=== PATIENT | female | born 1945 | race Caucasian/White ===

== ENCOUNTER → 2016-09-02 | Outpatient (REF) | payer MEDICARE, MEDICAID ==
[~2016-09-02] MED LIST: ACTO15TA OR; ACTO15TA PO; ALBU83IN IN; ALBUTEROL INH; ASPI81TA85 PO; BABY81CH OR; CALC600T7 PO; CALCIUM/VIT D OR; CLAR1TAB2 PO; CLARITIN OR; HYDR-3716 PO; HYDROCODONE OR; IPRASOL4 NEB; KEFL500C7 PO; LASI40TA OR; LASI40TA PO; LEVO75TA2 OR; LEVO75TA4 PO; LIDO5DIS TOP; LIDO5DIS36 TD; LISI-542 PO; LISI5TAB OR; LYRI100C10 PO; MULT1TAB8 PO; NYST100024 TOP; OMEP20CA3 PO; OMEP20TA7 OR; OXYCPOW OR; PREG100CA OR; SLOW MAG OR; SLOWTAB2 PO; THERGRAN OR; TIZA4TAB OR; TYLE325T5 PO; VITAMIN D50000 UNT OR
[2016-09-02 12:02] LABS: MEAN CORPUSCULAR HGB CONC 32.6 g/dl (32.0-36.5); MEAN CORPUSCULAR VOLUME 95.3 fl (80.0-96.0); WHITE BLOOD COUNT 5.8 K/mm3 (4.0-10.0)
[2016-09-02 12:24] LABS: ALBUMIN 3.6 GM/DL (3.2-5.2); ALBUMIN/GLOBULIN RATIO 1.13 (1.00-1.93); BILIRUBIN,TOTAL 0.3 MG/DL (0.2-1.0); CALCIUM LEVEL 9.2 MG/DL (8.8-10.2); CREATININE FOR GFR 1.05 MG/DL (0.55-1.02); FREE T4 1.04 NG/DL (0.76-1.46); GLOMERULAR FILTRATION RATE 55.2 (>39); MAGNESIUM LEVEL 2.3 MG/DL (1.8-2.4); POTASSIUM SERUM 4.4 MEQ/L (3.5-5.1); TOTAL PROTEIN 6.8 GM/DL (6.4-8.2)
== END ==
LOC: M SFHCPLAZ 10:04
PROVIDERS: ATTEND Family Medicine
DX: N18.3 Chronic kidney disease, stage 3 (moderate) (principal); E11.40 Type 2 diabetes mellitus with diabetic neuropathy, unspecified; E03.9 Hypothyroidism, unspecified; E78.5 Hyperlipidemia, unspecified; E83.40 Disorders of magnesium metabolism, unspecified

== ENCOUNTER → 2017-03-07 | Outpatient (REF) | payer MEDICARE, MEDICAID ==
[~2017-03-07] MED LIST changes: +KEFL500C17 PO; -KEFL500C7 PO; -LIDO5DIS36 TD; +LIDO5DIS41 TD; -LYRI100C10 PO; -NYST100024 TOP; +NYST1POW9 TOP; +PREG100CA PO
[2017-03-07 19:55] LABS: MEAN CORPUSCULAR HEMOGLOBIN 31.6 pg (27.0-33.0); MEAN CORPUSCULAR HGB CONC 32.8 g/dl (32.0-36.5); MEAN CORPUSCULAR VOLUME 96.5 fl (80.0-96.0); RED CELL DISTRIBUTION WIDTH 15.4 % (11.5-14.5); WHITE BLOOD COUNT 7.3 10^3/uL (4.0-10.0)
[2017-03-07 20:11] LABS: ALBUMIN 3.7 GM/DL (3.2-5.2); ALBUMIN/GLOBULIN RATIO 1.09 (1.00-1.93); BILIRUBIN,TOTAL 0.3 MG/DL (0.2-1.0); CREATININE FOR GFR 1.08 MG/DL (0.55-1.02); FREE T4 1.06 NG/DL (0.76-1.46); GLOMERULAR FILTRATION RATE 53.4 (>39); TOTAL PROTEIN 7.1 GM/DL (6.4-8.2)
== END ==
LOC: M SFHCADAM 14:28
PROVIDERS: ATTEND Family Medicine
DX: E11.40 Type 2 diabetes mellitus with diabetic neuropathy, unspecified (principal); N18.3 Chronic kidney disease, stage 3 (moderate); E78.5 Hyperlipidemia, unspecified; E03.9 Hypothyroidism, unspecified

== ENCOUNTER → 2017-03-07 | Outpatient (CLI) | payer MEDICARE, MEDICAID ==
--- NOTE | 2017-03-08 03:09 | REP ---
Clinical: Neck pain. Technique: AP, lateral, bilateral oblique, flexion/extension, and open-mouth views of the cervical spine. Findings: Age-related osteopenia and advanced multilevel degenerative disc osteophyte complexes are appreciated. No acute fracture / compression injury or subluxation identified. Oblique views demonstrate facet hypertrophy and foraminal narrowing at multiple levels. Open mouth view demonstrates normal C1-C2 articulation and odontoid process. Impression: Advanced osteopenia and multilevel degenerative disc osteophyte complexes. No acute fracture / compression injury or subluxation. Signed by Lacho Romero MD 03/08/2017 03:00 A
== END ==
LOC: M ADAMS 14:43
PROVIDERS: ATTEND Family Medicine
DX: M54.2 Cervicalgia (principal); M85.88 Other specified disorders of bone density and structure, other site; M25.78 Osteophyte, vertebrae; E11.40 Type 2 diabetes mellitus with diabetic neuropathy, unspecified; I11.9 Hypertensive heart disease without heart failure; N18.3 Chronic kidney disease, stage 3 (moderate); J44.9 Chronic obstructive pulmonary disease, unspecified; E03.9 Hypothyroidism, unspecified; E78.5 Hyperlipidemia, unspecified; G89.29 Other chronic pain

== ENCOUNTER → 2017-03-09 | Outpatient (REF) | payer MEDICARE, MEDICAID | LOC: M LAB REF 17:05 | PROVIDERS: ATTEND Internal Medicine Nephrology | DX: N39.0 Urinary tract infection, site not specified (principal) ==

== ENCOUNTER → 2017-04-26 | Outpatient (REF) | payer MEDICARE ==
[2017-04-26 22:32] LABS: MICROSCOPIC INDICATED? MAN YES (NO)
[2017-04-26 22:46] LABS: MICROSCOPIC EXAM PERFORMED; RBC, URINE 0-1 /hpf (0-3)
[2017-04-26 22:47] LABS: BACTERIA, URINE SMALL AMOUNT; HYALINE CAST, URINE 0-1 /lpf (0-1); SQUAMOUS EPITHELIAL CELL URINE SMALL AMOUNT /hpf (SMALL AMT)
== END ==
LOC: M SFHCADAM 10:29
PROVIDERS: ATTEND Physician Assistant
DX: N30.00 Acute cystitis without hematuria (principal)

== ENCOUNTER → 2017-06-14 | Outpatient (REF) | payer MEDICARE, MEDICAID ==
[2017-06-14 20:22] LABS: HEMATOCRIT 44.2 % (36.0-47.0); HEMOGLOBIN 14.2 g/dl (12.0-16.0); MEAN CORPUSCULAR HEMOGLOBIN 31.3 pg (27.0-33.0); MEAN CORPUSCULAR HGB CONC 32.1 g/dl (32.0-36.5); MEAN CORPUSCULAR VOLUME 97.4 fl (80.0-96.0); PLATELET COUNT, AUTOMATED 184 10^3/uL (150-450); RED BLOOD COUNT 4.54 10^6/uL (4.00-5.40); RED CELL DISTRIBUTION WIDTH 14.9 % (11.5-14.5); WHITE BLOOD COUNT 8.2 10^3/uL (4.0-10.0)
[2017-06-14 20:49] LABS: ESTIMATED AVERAGE GLUCOSE 131 MG/DL (60-110); HEMOGLOBIN A1c 6.2 %
[2017-06-14 21:01] LABS: ALBUMIN 3.6 GM/DL (3.2-5.2); ALBUMIN/GLOBULIN RATIO 1.06 (1.00-1.93); ALKALINE PHOSPHATASE 79 U/L (45-117); ALT/SGPT 20 U/L (12-78); ANION GAP 6 MEQ/L (8-16); AST/SGOT 20 U/L (7-37); BILIRUBIN,TOTAL 0.4 MG/DL (0.2-1.0); BLOOD UREA NITROGEN 20 MG/DL (7-18); CALCIUM LEVEL 9.1 MG/DL (8.8-10.2); CARBON DIOXIDE LEVEL 31 MEQ/L (21-32); CHLORIDE LEVEL 105 MEQ/L (98-107); CHOLESTEROL LEVEL 170 MG/DL (<200); CHOLESTEROL RISK RATIO 4.146 (<5); CREATININE FOR GFR 0.98 MG/DL (0.55-1.02); GLOMERULAR FILTRATION RATE 59.7 (>39); GLUCOSE, FASTING 79 MG/DL (83-110); HDL CHOLESTEROL 41 MG/DL (>40); LDL CHOLESTEROL 75.2 MG/DL (<100); NON-HDL-C 129 MG/DL; POTASSIUM SERUM 4.5 MEQ/L (3.5-5.1); SODIUM LEVEL 142 MEQ/L (136-145); TRIGLYCERIDES LEVEL 269 MG/DL (<150)
== END ==
LOC: M SFHCADAM 16:37
DX: Z00.00 Encounter for general adult medical examination without abnormal findings (principal); N18.3 Chronic kidney disease, stage 3 (moderate); E11.40 Type 2 diabetes mellitus with diabetic neuropathy, unspecified; E03.9 Hypothyroidism, unspecified; N39.0 Urinary tract infection, site not specified; M75.82 Other shoulder lesions, left shoulder; Z23 Encounter for immunization
CPT/HCPCS: 84443

== ENCOUNTER → 2017-08-09 | Outpatient (CLI) | payer MEDICARE, MEDICAID | LOC: M RAD 11:35 | DX: M79.89 Other specified soft tissue disorders (principal); M79.661 Pain in right lower leg | CPT/HCPCS: 73564 ==

== ENCOUNTER 2017-10-04 15:08 | Emergency (ER) | payer MEDICARE, MEDICAID ==
[2017-10-04] MEDS: HYDROmorphone HCL 1 MG/ML SYRINGE (J1170) IM (16:20)
== END 2017-10-04 17:18 | disposition home or self-care (01) ==
LOC: M ED 15:08
DX: E11.40 Type 2 diabetes mellitus with diabetic neuropathy, unspecified (principal); Z96.651 Presence of right artificial knee joint; I10 Essential (primary) hypertension; E78.00 Pure hypercholesterolemia, unspecified; F17.200 Nicotine dependence, unspecified, uncomplicated; J44.9 Chronic obstructive pulmonary disease, unspecified; K21.9 Gastro-esophageal reflux disease without esophagitis; N18.3 Chronic kidney disease, stage 3 (moderate); E03.9 Hypothyroidism, unspecified; Z87.440 Personal history of urinary (tract) infections; Z87.442 Personal history of urinary calculi; Z79.82 Long term (current) use of aspirin; Z79.899 Other long term (current) drug therapy; Z88.6 Allergy status to analgesic agent; Z91.89 Other specified personal risk factors, not elsewhere classified; Z88.8 Allergy status to other drugs, medicaments and biological substances; Z91.041 Radiographic dye allergy status
CPT/HCPCS: J1170

== ENCOUNTER → 2017-12-26 | Outpatient (REF) | payer MEDICARE, MEDICAID ==
[2017-12-26 12:31] LABS: HEMATOCRIT 42.2 % (36.0-47.0); HEMOGLOBIN 13.9 g/dl (12.0-15.5); MEAN CORPUSCULAR HEMOGLOBIN 31.4 pg (27.0-33.0); MEAN CORPUSCULAR HGB CONC 32.9 g/dl (32.0-36.5); MEAN CORPUSCULAR VOLUME 95.5 fl (80.0-96.0); PLATELET COUNT, AUTOMATED 207 10^3/uL (150-450); RED BLOOD COUNT 4.42 10^6/uL (4.00-5.40); RED CELL DISTRIBUTION WIDTH 15.9 % (11.5-14.5); WHITE BLOOD COUNT 7.4 10^3/uL (4.0-10.0)
[2017-12-26 13:31] LABS: ALBUMIN 3.3 GM/DL (3.2-5.2); ALBUMIN/GLOBULIN RATIO 1.03 (1.00-1.93); ALKALINE PHOSPHATASE 104 U/L (45-117); ALT/SGPT 17 U/L (12-78); ANION GAP 9 MEQ/L (8-16); AST/SGOT 16 U/L (7-37); BILIRUBIN,TOTAL 0.3 MG/DL (0.2-1.0); BLOOD UREA NITROGEN 17 MG/DL (7-18); CALCIUM LEVEL 8.3 MG/DL (8.8-10.2); CARBON DIOXIDE LEVEL 28 MEQ/L (21-32); CHLORIDE LEVEL 106 MEQ/L (98-107); CHOLESTEROL LEVEL 120 MG/DL (<200); CHOLESTEROL RISK RATIO 3.333 (<5); CREATININE FOR GFR 1.01 MG/DL (0.55-1.30); FREE T4 1.24 NG/DL (0.76-1.46); GLOMERULAR FILTRATION RATE 57.5 (>39); GLUCOSE, FASTING 98 MG/DL (70-100); HDL CHOLESTEROL 36 MG/DL (>40); LDL CHOLESTEROL 35.2 MG/DL (<100); MAGNESIUM LEVEL 1.9 MG/DL (1.8-2.4); NON-HDL-C 84 MG/DL; POTASSIUM SERUM 4.1 MEQ/L (3.5-5.1); SODIUM LEVEL 143 MEQ/L (136-145); TOTAL PROTEIN 6.5 GM/DL (6.4-8.2); TRIGLYCERIDES LEVEL 244 MG/DL (<150)
[2017-12-26 13:47] LABS: ESTIMATED AVERAGE GLUCOSE 140 MG/DL (60-110); HEMOGLOBIN A1c 6.5 %
== END ==
LOC: M SFHCADAM 09:59
DX: N18.3 Chronic kidney disease, stage 3 (moderate) (principal); D48.5 Neoplasm of uncertain behavior of skin; E03.9 Hypothyroidism, unspecified; E78.5 Hyperlipidemia, unspecified; E83.40 Disorders of magnesium metabolism, unspecified; E11.40 Type 2 diabetes mellitus with diabetic neuropathy, unspecified; E11.22 Type 2 diabetes mellitus with diabetic chronic kidney disease
CPT/HCPCS: 83735

== ENCOUNTER → 2018-03-09 | Outpatient (REF) | payer MEDICARE, MEDICAID | LOC: M SFHCPLAZ 12:41 | DX: D22.62 Melanocytic nevi of left upper limb, including shoulder (principal); L57.0 Actinic keratosis | CPT/HCPCS: 88305 ==

== ENCOUNTER → 2018-05-15 | Outpatient (REF) | payer MEDICARE, MEDICAID ==
[2018-05-15 20:41] LABS: BASO % 0.6 % (0.0-1.0); EOS # 0.1 10^3/uL (0.0-0.50); EOS % 1.7 % (0.0-3.0); HEMATOCRIT 41.6 % (36.0-47.0); HEMOGLOBIN 13.2 g/dl (12.0-15.5); IMMATURE GRANULOCYTE % 0.3 % (0-3.0); LYMPH # 2.3 10^3/uL (1.5-4.5); LYMPH % 35.4 % (24.0-44.0); MEAN CORPUSCULAR HEMOGLOBIN 32.4 pg (27.0-33.0); MEAN CORPUSCULAR HGB CONC 31.7 g/dl (32.0-36.5); MEAN CORPUSCULAR VOLUME 102.2 fl (80.0-96.0); MONO # 0.4 10^3/uL (0.0-0.8); MONO % 6.6 % (0.0-5.0); NEUTROPHILS # 3.6 10^3/uL (1.8-7.7); NEUTROPHILS % 55.4 % (36.0-66.0); PLATELET COUNT, AUTOMATED 188 10^3/uL (150-450); RED BLOOD COUNT 4.07 10^6/uL (4.00-5.40); RED CELL DISTRIBUTION WIDTH 15.3 % (11.5-14.5); WHITE BLOOD COUNT 6.6 10^3/uL (4.0-10.0)
[2018-05-15 20:46] LABS: ALBUMIN 3.1 GM/DL (3.2-5.2); ALBUMIN/GLOBULIN RATIO 1.03 (1.00-1.93); ALKALINE PHOSPHATASE 89 U/L (45-117); ALT/SGPT 19 U/L (12-78); AMYLASE 44 U/L (25-115); ANION GAP 6 MEQ/L (8-16); AST/SGOT 17 U/L (7-37); BILIRUBIN,TOTAL 0.2 MG/DL (0.2-1.0); BLOOD UREA NITROGEN 17 MG/DL (7-18); CALCIUM LEVEL 8.3 MG/DL (8.8-10.2); CARBON DIOXIDE LEVEL 28 MEQ/L (21-32); CHLORIDE LEVEL 108 MEQ/L (98-107); CREATININE FOR GFR 1.11 MG/DL (0.55-1.30); FREE T4 0.93 NG/DL (0.76-1.46); GLOMERULAR FILTRATION RATE 51.6 (>39); GLUCOSE, FASTING 109 MG/DL (70-100); LIPASE 112 U/L (73-393); POTASSIUM SERUM 4.7 MEQ/L (3.5-5.1); SODIUM LEVEL 142 MEQ/L (136-145); THYROID STIMULATING HORMONE 0.241 uIU/ML (0.358-3.740); TOTAL PROTEIN 6.1 GM/DL (6.4-8.2)
[2018-05-15 20:49] LABS: ESTIMATED AVERAGE GLUCOSE 134 MG/DL (60-110); HEMOGLOBIN A1c 6.3 %
[2018-05-15 21:18] LABS: POS COUNT POS FLAG
[2018-05-18 00:29] LABS: H PYLORI SERUM QUANT IGM <9.0 units (0.0-8.9)
== END ==
LOC: M SFHCADAM 11:32
DX: R10.13 Epigastric pain (principal); E11.40 Type 2 diabetes mellitus with diabetic neuropathy, unspecified; E03.9 Hypothyroidism, unspecified; E83.40 Disorders of magnesium metabolism, unspecified
CPT/HCPCS: 82150

== ENCOUNTER → 2018-07-17 | Outpatient (CLI) | payer MEDICARE, MEDICAID ==
[~2018-07-17] MED LIST changes: +IPRA0.00 NEB; -IPRASOL4 NEB; -LASI40TA PO; +LASI40TA9 PO
== END ==
LOC: M ADAMS 15:23
PROVIDERS: ATTEND Family Medicine
DX: M79.671 Pain in right foot (principal); Z53.8 Procedure and treatment not carried out for other reasons

== ENCOUNTER → 2018-07-18 | Outpatient (REF) | payer MEDICARE, MEDICAID ==
--- NOTE | 2018-07-19 04:23 | REP ---
Clinical: Nontraumatic right foot pain. Technique: AP, lateral, bilateral oblique views right foot . Findings: Age related osteopenia and generalized degenerative changes are appreciated. No acute fracture dislocation. No subcutaneous emphysema or radiodense foreign body. Impression: Osteopenia and generalized age-related changes. Electronically Signed by Lacho Romero MD 07/19/2018 04:14 A
== END ==
LOC: M ADAMS 11:49
PROVIDERS: ATTEND Family Medicine
DX: M79.671 Pain in right foot (principal)

== ENCOUNTER → 2018-11-02 | Outpatient (CLI) | payer MEDICARE, MEDICAID ==
[~2018-11-02] MED LIST changes: +GABA-845 PO
[2018-11-02 12:36] LABS: BASO # 0.1 10^3/uL (0.0-0.2); BASO % 0.8 % (0.0-1.0); EOS # 0.1 10^3/uL (0.0-0.50); HEMATOCRIT 40.9 % (36.0-47.0); HEMOGLOBIN 13.2 g/dl (12.0-15.5); LYMPH # 2.5 10^3/uL (1.5-4.5); LYMPH % 38.8 % (24.0-44.0); MEAN CORPUSCULAR HEMOGLOBIN 32.6 pg (27.0-33.0); MEAN CORPUSCULAR HGB CONC 32.3 g/dl (32.0-36.5); MONO # 0.4 10^3/uL (0.0-0.8); MONO % 6.4 % (0.0-5.0); NEUTROPHILS # 3.3 10^3/uL (1.8-7.7); NEUTROPHILS % 51.7 % (36.0-66.0); PLATELET COUNT, AUTOMATED 219 10^3/uL (150-450); RED BLOOD COUNT 4.05 10^6/uL (4.00-5.40); WHITE BLOOD COUNT 6.5 10^3/uL (4.0-10.0)
[2018-11-02 13:03] LABS: ALBUMIN 3.7 GM/DL (3.2-5.2); ALT/SGPT 18 U/L (12-78); AMYLASE 52 U/L (25-115); BILIRUBIN,TOTAL 0.3 MG/DL (0.2-1.0); BLOOD UREA NITROGEN 20 MG/DL (7-18); CALCIUM LEVEL 9.3 MG/DL (8.8-10.2); CARBON DIOXIDE LEVEL 25 MEQ/L (21-32); CHLORIDE LEVEL 112 MEQ/L (98-107); CREATININE FOR GFR 1.23 MG/DL (0.55-1.30); GLOMERULAR FILTRATION RATE 45.7 (>39); GLUCOSE, FASTING 99 MG/DL (70-100); LIPASE 139 U/L (73-393); POTASSIUM SERUM 4.5 MEQ/L (3.5-5.1); SODIUM LEVEL 142 MEQ/L (136-145); TOTAL PROTEIN 6.5 GM/DL (6.4-8.2)
[2018-11-02 13:11] LABS: VITAMIN B12 LEVEL 515 PG/ML (247-911)
[2018-11-02 14:32] LABS: FOLATE > 24.0 NG/ML (>5.4)
== END ==
LOC: M LAB 11:58
PROVIDERS: ATTEND Internal Medicine Gastroenterology
DX: R19.06 Epigastric swelling, mass or lump (principal)

== ENCOUNTER → 2018-11-12 | Outpatient (REF) | payer MEDICARE, MEDICAID | LOC: M LAB REF 16:45 | PROVIDERS: ATTEND Internal Medicine Nephrology | DX: N39.0 Urinary tract infection, site not specified (principal) ==

== ENCOUNTER → 2018-11-20 | Outpatient (CLI) | payer MEDICARE, MEDICAID ==
[~2018-11-20] MED LIST changes: +ACTO30TA15 PO; +CLAR10CA3 PO
[2018-11-20 14:00] VITALS: BP 162/70
--- NOTE | 2018-11-20 14:09 | REP ---
CT ABDOMEN AND PELVIS WITHOUT CONTRAST: CT abdomen and pelvis performed without oral or IV contrast. Sagittal and coronal reconstruction images are performed. Comparison made with a prior study of 12/24/2013. There are mild interstitial fibrotic changes in the visualized lung bases. Liver is grossly unremarkable. The patient has had a prior cholecystectomy. Spleen, adrenals, and pancreas are grossly unremarkable. There are three intrarenal calculi in the right renal collecting system, the largest is in the upper pole 1.2 cm in diameter. There is no hydronephrosis bilaterally. There is moderate left renal atrophy. There is cystic structures in the left kidney. A calculus in the lower pole of the left kidney measures 6 mm. There is atherosclerotic calcification of the abdominal aorta without aneurysm. I see no adenopathy. There is no free air or free fluid. There is no bowel wall thickening. There is diastasis of the rectus muscles. There is sigmoid diverticulosis without evidence of acute diverticulitis. The patient has had a hysterectomy. Metallic clips are seen in the pelvis. There is a small amount of air in the urinary bladder likely from recent catheterization. There are diffuse degenerative changes of the spine with curvature. IMPRESSION: Status post cholecystectomy. No free air or free fluid. Bilateral intrarenal calculi. Moderate left renal atrophy. Left renal cysts. No hydronephrosis. No adenopathy. Sigmoid diverticulosis without acute diverticulitis. Mild air in the bladder is likely due to recent catheterization. Electronically Signed by Jovani Ramirez MD 11/20/2018 08:12 P
== END ==
LOC: M RAD 12:22
PROVIDERS: ATTEND Internal Medicine Gastroenterology
DX: R10.13 Epigastric pain (principal); R63.4 Abnormal weight loss; R19.06 Epigastric swelling, mass or lump

== ENCOUNTER → 2018-11-22 | Outpatient (CLI) | payer MEDICARE, MEDICAID | LOC: M LAB 10:51 | PROVIDERS: ATTEND Internal Medicine Nephrology | DX: N39.0 Urinary tract infection, site not specified (principal) ==

== ENCOUNTER 2018-11-26 12:09 | Day surgery (SDC) | payer MEDICARE, MEDICAID ==
[~2018-11-26] VITALS: Ht 157.5 cm; Wt 71.7 kg
[~2018-11-26 12:09] MED LIST changes: +NS 1,000 ML IV ONE
[2018-11-26] MEDS ORDERED: LIDOCAINE 2% INJ 100 MG/5 ML SDV (FOR ANES.) As Ordered ONE (13:23)
[2018-11-26] MEDS ORDERED: PROPOFOL 500 MG/50 ML VIAL As Ordered ONE (13:23)
--- NOTE | 2018-11-26 13:49 | ROOR ---
Patient Name: Nai Campos Procedure Date: 11/26/2018 1:21 PM Date of : 1945 Age: 73 Room: [facility] Gender: Female Note Status: Finalized Procedure: Upper GI endoscopy Indications: Epigastric abdominal pain, Suspected gastroparesis, Nausea Providers: Sidney GARZA MD Referring MD: Troy Bhardwaj MD Requesting Provider: Medicines: Monitored Anesthesia Care Complications: No immediate complications. Procedure: Pre-Anesthesia Assessment: - The heart rate, respiratory rate, oxygen saturations, blood pressure, adequacy of pulmonary ventilation, and response to care were monitored throughout the procedure. The Endoscope was introduced through the mouth, and advanced to the second part of duodenum. The upper GI endoscopy was accomplished without difficulty. The patient tolerated the procedure well. Findings: The examined esophagus was normal. Diffuse mildly erythematous mucosa without bleeding was found in the gastric antrum. This was biopsied with a cold forceps for histology. Two localized 5 mm erosions were found at the pylorus. There were no stigmata of recent bleeding. Biopsies were taken with a cold forceps for histology. The exam of the stomach was otherwise normal. (large volume) The examined duodenum was normal. Impression: - Normal esophagus. - Erythematous mucosa in the antrum with 2 small shallow erosions. Biopsied. - Stomach is otherwise normal. - Normal examined duodenum. Recommendation: - Use sucralfate tablets 1 gram twice a day for 4 weeks. (script sent to your pharmacy) - Telephone endoscopist for pathology results in 2 weeks. - Gastroparesis diet: - Eat smaller, more frequent meals throughout the day. - Low fat diet. - Liquid/soft foods are tolerated better than solid foods. - Low fiber/well cooked vegetables are tolerated better than high fiber/fibrous foods/raw vegetables. - Avoid medications that inhibit gastric/intestinal motility such as narcotic medications. Sidney Garza MD Sidney GARZA MD 11/26/2018 1:48:51 PM Electronically signed by Sidney GARZA MD Number of Addenda: 0 Note Initiated On: 11/26/2018 1:21 PM Estimated Blood Loss: Estimated blood loss: none.
[2018-11-26 14:15] VITALS: BP 130/80
== END 2018-11-26 14:29 | disposition home or self-care (01) ==
LOC: M OPP 12:09
PROVIDERS: ATTEND Internal Medicine Gastroenterology
DX: K31.89 Other diseases of stomach and duodenum (principal); R10.13 Epigastric pain; R11.0 Nausea; R63.4 Abnormal weight loss; K21.9 Gastro-esophageal reflux disease without esophagitis; F17.210 Nicotine dependence, cigarettes, uncomplicated; Z79.82 Long term (current) use of aspirin; Z79.899 Other long term (current) drug therapy; Z79.891 Long term (current) use of opiate analgesic; Z91.048 Other nonmedicinal substance allergy status; Z91.041 Radiographic dye allergy status; Z88.2 Allergy status to sulfonamides; Z88.8 Allergy status to other drugs, medicaments and biological substances

== ENCOUNTER → 2019-01-03 | Outpatient (REF) | payer MEDICARE, MEDICAID ==
[~2019-01-03] MED LIST changes: -NS 1,000 ML IV ONE; -OMEP20CA3 PO; +OMEP20CA4 PO
== END ==
LOC: M SFHCADAM 16:46
PROVIDERS: ATTEND Family Medicine
DX: N39.0 Urinary tract infection, site not specified (principal); Z53.8 Procedure and treatment not carried out for other reasons

== ENCOUNTER → 2019-01-10 | Outpatient (REF) | payer MEDICARE, MEDICAID | LOC: M SFHCADAM 19:23 | PROVIDERS: ATTEND Family Medicine | DX: N39.0 Urinary tract infection, site not specified (principal) ==

== ENCOUNTER → 2019-03-12 | Outpatient (REF) | payer MEDICARE, MEDICAID ==
[2019-03-12 13:08] LABS: HEMATOCRIT 41.5 % (36.0-47.0); MEAN CORPUSCULAR HEMOGLOBIN 32.3 pg (27.0-33.0); MEAN CORPUSCULAR HGB CONC 31.3 g/dl (32.0-36.5); MEAN CORPUSCULAR VOLUME 103.2 fl (80.0-96.0); PLATELET COUNT, AUTOMATED 226 10^3/uL (150-450); RED BLOOD COUNT 4.02 10^6/uL (4.00-5.40); WHITE BLOOD COUNT 6.7 10^3/uL (4.0-10.0)
[2019-03-12 13:34] LABS: ALBUMIN 3.2 GM/DL (3.2-5.2); ALT/SGPT 16 U/L (12-78); BILIRUBIN,TOTAL 0.4 MG/DL (0.2-1.0); BLOOD UREA NITROGEN 15 MG/DL (7-18); CALCIUM LEVEL 8.6 MG/DL (8.8-10.2); CARBON DIOXIDE LEVEL 25 MEQ/L (21-32); CHLORIDE LEVEL 111 MEQ/L (98-107); CHOLESTEROL LEVEL 119 MG/DL (<200); CHOLESTEROL RISK RATIO 2.288 (<5); CREATININE FOR GFR 0.95 MG/DL (0.55-1.30); GLOMERULAR FILTRATION RATE > 60.0 (>39); GLUCOSE, FASTING 87 MG/DL (70-100); HDL CHOLESTEROL 52 MG/DL (>40); LDL CHOLESTEROL 32 MG/DL (<100); MAGNESIUM LEVEL 1.9 MG/DL (1.8-2.4); NON-HDL-C 67 MG/DL; POTASSIUM SERUM 3.9 MEQ/L (3.5-5.1); SODIUM LEVEL 143 MEQ/L (136-145); TOTAL PROTEIN 6.1 GM/DL (6.4-8.2); TRIGLYCERIDES LEVEL 174 MG/DL (<150)
[2019-03-12 14:27] LABS: HEMOGLOBIN A1c 5.5 %
== END ==
LOC: M SFHCADAM 09:47
PROVIDERS: ATTEND Family Medicine
DX: E11.40 Type 2 diabetes mellitus with diabetic neuropathy, unspecified (principal); N18.3 Chronic kidney disease, stage 3 (moderate); E03.9 Hypothyroidism, unspecified; E78.5 Hyperlipidemia, unspecified; E83.40 Disorders of magnesium metabolism, unspecified
CPT/HCPCS: 20610; 80053; 80061; 83036; 83735; 84439; 84443; 85027; 90471; 90682; J1030

== ENCOUNTER → 2019-03-20 | Outpatient (REF) | payer MEDICARE, MEDICAID ==
[2019-03-20 17:50] LABS: CREATININE, URINE 61.5 MG/DL; MALB URINE SIEMENS 13.7 MG/L; MAU/CREAT RATIO 22.2 MCG/MG (0.0-30.0)
== END ==
LOC: M SFHCADAM 16:04
PROVIDERS: ATTEND Family Medicine
DX: E11.40 Type 2 diabetes mellitus with diabetic neuropathy, unspecified (principal)

== ENCOUNTER 2019-05-26 17:39 | Inpatient (IN) | payer MEDICARE, MEDICAID ==
[~2019-05-26] VITALS: Ht 152.4 cm; Wt 75.9 kg
[~2019-05-26 17:39] MED LIST changes: +OMEP-172 PO; -OMEP20CA4 PO
[2019-05-26] MEDS ORDERED: GABA-843 PO (17:59)
[2019-05-26] MEDS ORDERED: MORPHINE 2 MG/ML 1ML VIAL (J2270) IV ONE (18:45)
[2019-05-26 19:35] LABS: HEMATOCRIT 39.8 % (36.0-47.0); HEMOGLOBIN 12.2 g/dl (12.0-15.5); MEAN CORPUSCULAR HEMOGLOBIN 31.3 pg (27.0-33.0); MEAN CORPUSCULAR HGB CONC 30.7 g/dl (32.0-36.5); MEAN CORPUSCULAR VOLUME 102.1 fl (80.0-96.0); PLATELET COUNT, AUTOMATED 241 10^3/uL (150-450); WHITE BLOOD COUNT 9.5 10^3/uL (4.0-10.0)
[2019-05-26 19:54] LABS: BLOOD UREA NITROGEN 18 MG/DL (7-18); CALCIUM LEVEL 8.9 MG/DL (8.8-10.2); CARBON DIOXIDE LEVEL 27 MEQ/L (21-32); CHLORIDE LEVEL 111 MEQ/L (98-107); CREATININE FOR GFR 0.91 MG/DL (0.55-1.30); GLOMERULAR FILTRATION RATE > 60.0 (>39); GLUCOSE, FASTING 118 MG/DL (70-100); POTASSIUM SERUM 3.8 MEQ/L (3.5-5.1); SODIUM LEVEL 145 MEQ/L (136-145); URIC ACID 3.9 MG/DL (2.6-6.0)
[2019-05-26] MEDS ORDERED: NS 1,000 ML IV SCH (20:50)
--- NOTE | 2019-05-26 20:55 | HPEPDOC ---
[facility] Medical History & Physical Date of Admission May 26, 2019 Date of Service: May 26, 2019 Primary Care Physician: Troy Bhardwaj MD Attending Physician: Troy Bhardwaj MD History and Physical TIME OF SERVICE: 9:20 PM CHIEF COMPLAINT: Right leg pain HISTORY OF PRESENT ILLNESS: This is a 73-year-old female was brought to the hospital by her family members. According to her son yesterday when she tried to stand up, she had immense pain and was unable to walk. Thereafter, he was pushing her around in office chair, wheelchair style. Besides right leg pain, the patient denies having any other acute complaints and reports feeling well. REVIEW OF SYSTEMS: 12 point review of systems negative except as listed in HPI PAST MEDICAL/ SURGICAL HISTORY: Neuropathy ( remote history of diabetes. A1c 5.5 in March) Chronic hypertension. CKD 3 Hypothyroidism. COPD, not dependent on oxygen. GERD Osteoarthritis. Dyslipidemia. Hypothyroidism. Unsteady gait at baseline walks with a walker Status post cystectomy. Status post cholecystectomy Status post right carpal tunnel surgery. Status post omental hernia repair. Status post appendectomy. Status post left foot ORIF SOCIAL HISTORY: She is a smoker. FAMILY HISTORY: Hypertension Coronary disease Cervical cancer ALLERGIES: Please see below. HOME MEDICATIONS: Please see below. PHYSICAL EXAMINATION: VITAL SIGNS: Please see below. GEN: well nourished / well developed/ NAD INTEGUMENT: not flushed/ not jaundice / there is redness and swelling of the right lower leg HEENT: normocephalic / atraumatic / lips acyanotic /mucus membranes moist and pink / sclera anicteric CVS: RRR/NMRG LUNGS: no coughing / lungs are clear to auscultation bilaterally on room air ABDOMEN: there are no masses or lesions / bowel sounds are present / the abdomen is soft & not tender with palpation NEURO: CN 2-12 are grossly intact / speech is not dysarthric PSYCH: alert and oriented to person place and time/ able to understand and follow all commands LABORATORY DATA: See below. IMAGING: X-rays of the leg show a fracture of the right fibula, but the final read is pending MICROBIOLOGY: Please see below. ASSESSMENT: Ms. Campos is a 73 female with history of DM with neuropathy, chronic hypertension, osteoarthritis, dyslipidemia, hypothyroidism, and unsteady gait will be admitted for management of a right fibular fracture. PLAN: 1. Right fibular fracture, likely secondary to osteoporosis Plan: admit to [facility] / the patient and her family declined surgery/ Ortho consult / PT/ OT consult / pain control w home dose of Vicodine + IV Morphine PRN with stool softeners , the day time team may consider a Pain medicine consult bc the patient appears to have high tolerance to pain meds , despite receiving Vicodin and morphine in the ER, she still very alert/she will need out patient work-up to r/o secondary causes of Osteoporosis (ie DEXA (if T score less than -3 will need Endo referral to start Forteo), TSH, Calcium, 25-OH Vitamin D, Urine calcium & BMP to calculate CrCl BMP to calculate CrCl prior to selecting a bisphosphonate or other med liek denosumab) 2. Neuropathy A1c 5.5 in May. Target A1c for this patient with limited life expectancy is 8.5 % Plan: Continue gabapentin / hold pioglitazone / follow-up serum glucose with a.m BMP 3. Chronic hypertension/ CKD 3 Plan: c/w Lasix 4. Hypothyroidism. Plan: c/w levothyroxine 5. GERD Plan:c/w Omeprazole 6. Osteoarthritis. Plan: c/w Vicodin DVT PROPHYLAXIS: Lovenox DISPOSITION: Inpatient rehabilitation versus home after more than [address] ay Vital Signs Vital Signs Date Time Temp Pulse Resp B/P (MAP) Pulse Ox O2 Delivery O2 Flow Rate FiO2 05/26/19 20:40 98.0 65 18 122/66 (84) 97 05/26/19 19:26 Room Air Laboratory Data Labs 24H Laboratory Tests 2 05/26/19 19:20: Nucleated Red Blood Cells % (auto) 0.0, Anion Gap 7L, Glomerular Filtration Rate > 60.0, Uric Acid 3.9, Calcium Level 8.9 CBC/BMP Laboratory Tests 05/26/19 19:20 Home Medications Scheduled Aspirin (Aspir 81) 81 Mg Tab, 81 MG PO QHS Calcium Carbonate/Vitamin D3 (Calcium 600-Vit D3 200 Tablet) 1 Tab Tab, 1 TAB PO DAILY Furosemide (Lasix) 40 Mg Tab, 40 MG PO DAILY Gabapentin (Gabapentin) 300 Mg Capsule, 600 MG PO BID Levothyroxine Sodium (Levothyroxine Sodium) 75 Mcg Tab, 75 MCG PO DAILY Magnesium Chloride (Slow-Mag) 1 Tab Tab, 64 MG PO BID Multivitamin (Multi-Vitamin Daily) 1 Tab Tab, 1 TAB PO DAILY Omeprazole (Omeprazole) 20 Mg Cap, 20 MG PO BID Pioglitazone HCl (Actos) 30 Mg Tablet, 15 MG PO DAILY Scheduled PRN Hydrocodone/Acetaminophen (Hydrocodone-Acetamin 7.5-325) 1 Tab Tab, 2 TAB PO Q4H PRN for PAIN Loratadine (Claritin) 10 Mg Capsule, 10 MG PO DAILY PRN for ALLERGIES Nystatin (Nystatin Powder) 100,000 Unit/Gm Pow, 1 APPLIC TOP DAILY PRN for REDNESS/IRRITATION Allergies Coded Allergies: Contrast Media (Verified Allergy, Severe, SOB,NAUSEA, 11/22/18) NSAIDS (Non-Steroidal Anti-Inflamma (Verified Adverse Reaction, Severe, kidney problems, 05/26/19) indomethacin (Verified Adverse Reaction, Severe, kidney problems, 05/26/19) metformin (Verified Adverse Reaction, Severe, kidney problems, 05/26/19) TAPE (Verified Adverse Reaction, Intermediate, HUGHES, 11/22/18) barium sulfate (Verified Adverse Reaction, Intermediate, vomiting, 05/26/19) A-FIB/CHADSVASC A-FIB History Current/History of A-Fib/PAF?: No Current PO Anticoag Therapy: No ONDINA ECHEVERRIA MD May 26, 2019 20:55
[2019-05-26] MEDS: MAGNESIUM CHLORIDE 64 MG TABCR (SLO MAG) PO SCH (21:00)
[2019-05-26 21:16] LABS: NT-PRO BNP 239 PG/ML (<125)
[2019-05-26] MEDS ORDERED: ANEXSIA, NORCO 7.5MG/325MG TABLET(HYDROCODONE/APAP) PO ONE (22:15)
[2019-05-26] MEDS ORDERED: NYSTATIN 100,000 UNITS/GM TOPICAL PWD 15 GM TOP PRN (23:00)
[2019-05-27 00:39] VITALS: BP 147/74
[2019-05-27] MEDS: ASPIRIN 81 MG ENTERIC TAB PO SCH ×2 (00:41→20:22)
[2019-05-27] MEDS: GABAPENTIN 300 MG CAP PO SCH ×3 (00:41→20:22)
[2019-05-27] MEDS: OMEPRAZOLE 20 MG CAP PO SCH ×3 (00:41→20:23)
[2019-05-27] MEDS: MORPHINE 2 MG/ML 1ML VIAL (J2270) IV PRN ×2 (00:41→20:23)
[2019-05-27] MEDS: ANEXSIA, NORCO 7.5MG/325MG TABLET(HYDROCODONE/APAP) PO PRN ×5 (05:21→23:42)
[2019-05-27] MEDS: LEVOTHYROXINE 75MCG TABLET (0.075MG) PO SCH (05:21)
[2019-05-27 06:00] VITALS: BP 130/65
--- NOTE | 2019-05-27 08:36 | REP ---
RIGHT ANKLE, FOUR VIEWS: Four views of the right ankle performed. There is a somewhat comminuted fracture of the distal fibular shaft not significantly displaced. Adjacent tibia is intact. Ankle mortise is anatomic. There is moderate inferior calcaneal spurring. IMPRESSION: Comminuted fracture distal fibular shaft and not significantly displaced. Electronically Signed by Jovani Ramirez MD 05/27/2019 04:18 P
--- NOTE | 2019-05-27 08:38 | REP ---
RIGHT LOWER LEG, AP AND LATERAL: AP and lateral views of right lower leg performed. Comminuted fracture of the distal third of the fibular shaft is not significantly displaced. I see no other evidence of acute fracture or dislocation. Metallic knee prosthesis is noted. IMPRESSION: Comminuted nondisplaced fracture distal fibular shaft. Electronically Signed by Jovani Ramirez MD 05/27/2019 04:18 P
--- NOTE | 2019-05-27 08:40 | REP ---
RIGHT FOOT, FOUR VIEWS: There is no evidence of an acute fracture, dislocation or intrinsic bone disease. There is moderate inferior calcaneal spurring. IMPRESSION: No fracture or dislocation. Electronically Signed by Jovani Ramirez MD 05/27/2019 04:18 P
[2019-05-27] MEDS: FUROSEMIDE 40 MG TAB PO SCH (09:04)
[2019-05-27] MEDS: CALCIUM/VITAMIN D 500 MG TAB PO SCH (09:04)
[2019-05-27] MEDS: MAGNESIUM CHLORIDE 64 MG TABCR (SLO MAG) PO SCH ×2 (09:04→20:22)
[2019-05-27] MEDS: ENOXAPARIN 40 MG/0.4 ML SYRINGE (J1650) SC SCH (09:05)
[2019-05-27 11:00] LABS: HEMATOCRIT 37.8 % (36.0-47.0); HEMOGLOBIN 11.7 g/dl (12.0-15.5); MEAN CORPUSCULAR HEMOGLOBIN 31.5 pg (27.0-33.0); MEAN CORPUSCULAR VOLUME 101.9 fl (80.0-96.0); PLATELET COUNT, AUTOMATED 233 10^3/uL (150-450); RED BLOOD COUNT 3.71 10^6/uL (4.00-5.40); WHITE BLOOD COUNT 8.5 10^3/uL (4.0-10.0)
[2019-05-27 11:24] LABS: BLOOD UREA NITROGEN 15 MG/DL (7-18); CALCIUM LEVEL 8.8 MG/DL (8.8-10.2); CARBON DIOXIDE LEVEL 27 MEQ/L (21-32); CHLORIDE LEVEL 110 MEQ/L (98-107); CREATININE FOR GFR 0.81 MG/DL (0.55-1.30); GLOMERULAR FILTRATION RATE > 60.0 (>39); GLUCOSE, FASTING 100 MG/DL (70-100); POTASSIUM SERUM 3.6 MEQ/L (3.5-5.1); SODIUM LEVEL 144 MEQ/L (136-145)
[2019-05-27 14:00] VITALS: BP 110/60
--- NOTE | 2019-05-27 16:48 | IPNPDOC ---
Subjective Date Seen The patient was seen on 05/27/19. Subjective Chief Complaint/HPI adequate pain control Constitutional: Denies: Chills, Fever Eyes: Denies: Pain ENT: Denies: Head Aches Skin: Denies: Rash Pulmonary: Denies: Dyspnea, Cough Cardiovascular: Denies: Chest Pain, Palpitations Gastrointestinal: Denies: Nausea, Vomiting Objective Physical Examination General Exam: Positive: Alert Eye Exam: Positive: PERRLA Neck Exam: Negative: JVD Chest Exam: Positive: Clear to auscultation Heart Exam: Positive: Rate Normal Abdomen Exam: Positive: Normal bowel sounds Extremity Exam: Negative: Edema Skin Exam: Positive: Rash Neuro Exam: Positive: Normal Speech Psych Exam: Positive: Mood NL Assessment /Plan Problems (1) Right fibular fracture Status: Acute Problem Text: low-trauma fracture patient refused surgical repair PT/Ortho consulted 05/[address] to ro pathological source and porosis velez, hold HD evin 30 QD (03/2019 A1C 5.5 and aw CHF, bone loss) 05/27/19 xray: ND comminuted R distal fibular shaft fx plan outpx DEXA and start po vs IV BP in 4W (2) Physical deconditioning Status: Chronic Problem Text: lives c son who works so will need ST SNF 05/27 required 2A for standing, unable to tx-obviously NOT SAFE (3) Hypothyroid Status: Chronic Problem Text: 03/2019 0.7/1.0 on HD LT4 75 (4) CHF (congestive heart failure) Status: Chronic Problem Text: 05/27 check TTE-BNP 239 on admission (no previous) and continues on HD fur 40 (as above evin held) (5) Vitamin D deficiency Status: Chronic Problem Text: 06/2010 vitamin D 22, repeat now (6) Nicotine use disorder (7) Constipation, chronic Status: Chronic Response to Treatment: Stable Problem Text: chronic stimulant-dependent 05/27 restarted senna at 2 QHS given immobility, new narcotic rx (HD: senna 2 QOHS) Plan/VTE VTE Prophylaxis Ordered?: Yes VS, I&O, 24H, Fishbone Vital Signs/I&O Vital Signs Date Time Temp Pulse Resp B/P (MAP) Pulse Ox O2 Delivery O2 Flow Rate FiO2 05/27/19 14:17 18 05/27/19 14:00 97.1 58 110/60 (77) 92 Room Air I&O- Last 24 Hours up to 6 AM 05/27/19 06:00 Intake Total 460 ml Output Total 0 ml Balance 460 ml Laboratory Data 24H LABS Laboratory Tests 2 05/26/19 19:20: Nucleated Red Blood Cells % (auto) 0.0, Anion Gap 7L, Glomerular Filtration Rate > 60.0, Uric Acid 3.9, Calcium Level 8.9, GU-Wxh-D-Type Natriuretic Peptide 239H 05/27/19 08:45: Nucleated Red Blood Cells % (auto) 0.0, Anion Gap 7L, Glomerular Filtration Rate > 60.0, Calcium Level 8.8 CBC/BMP Laboratory Tests 05/26/19 19:20 05/27/19 08:45 Ramo Arechiga M.D. May 27, 2019 16:48
[2019-05-27 18:09] LABS: TOTAL PROTEIN 6.2 GM/DL (6.4-8.2)
[2019-05-27] MEDS: SENNA 8.6 MG TAB (SENOKOT) PO SCH ×2 (20:22→20:26)
--- NOTE | 2019-05-27 20:22 | REPVR ---
PROCEDURE INFORMATION: Exam: CT Right Lower Extremity Without Contrast; Lower Leg Exam date and time: 05/27/2019 6:56 PM Age: 73 years old Clinical history: Pain; Lower leg; Right; Additional info: Low trauma/ ? Pathological TECHNIQUE: Imaging protocol: CT of the Right lower extremity without contrast was performed. Exam focused on the lower leg. Radiation optimization: All CT scans at this facility use at least one of these dose optimization techniques: automated exposure control; mA and/or kV adjustment per patient size (includes targeted exams where dose is matched to clinical indication); or iterative reconstruction. COMPARISON: CR Tibia, Fibula lower leg RIGHT 05/26/2019 7:41 PM CR - RIGHT Tibia, Fibula lower leg 10/04/2017 4:15:41 PM CR - Knee, complete RIGHT 08/09/2017 12:12:44 PM FINDINGS: Bones/joints: Postoperative changes are noted from a right total knee arthroplasty, and there is streak artifact from the hardware. The hardware is intact and appropriately positioned. There is an acute, comminuted, mildly displaced fracture of the right distal fibular diaphysis, with a questionable underlying lytic lesion. There is a lytic lesion in the lateral aspect of the right proximal tibial meta-epiphysis measuring approximately 11.4 cm in length, with a break in the anterior and posterior cortex and soft tissue components extending anteriorly and posteriorly through the breaks in the cortex of the lateral aspect of the right proximal tibial meta-epiphysis. The lytic lesion extends inferiorly to involve the intramedullary cavity of at least the right proximal third of the tibial diaphysis. The rest of the intramedullary cavity of the distal 2/3 of the right tibia appears demineralized. Soft tissues: There is mild fatty atrophy of the right medial and lateral head of gastrocnemius and soleus muscles. No soft tissue fluid collection is noted. Vasculature: There are atherosclerotic calcifications. IMPRESSION: 1. Acute, comminuted, mildly displaced fracture of the right distal fibular diaphysis, with a questionable underlying lytic lesion. 2. Lytic lesion in the lateral aspect of the right proximal tibial meta-epiphysis which breaks in the anterior and posterior cortices and soft tissue components extending anteriorly and posteriorly through the breaks in the cortex of the lateral aspect of the right proximal tibial meta-epiphysis and the lesion extends inferiorly to involve the intramedullary cavity of at least the proximal third of the tibial diaphysis. Differential diagnostic considerations include metastatic disease, a primary bone tumor, and particle disease. Tissue correlation is suggested for a pathologic diagnosis. Electronically signed by: Lauro Gilbert On 05/27/2019 20:22:06 PM
[2019-05-27 22:44] VITALS: BP_SYST 138; BP_SYST 162; BP_DIAS 64
[2019-05-28] MEDS: MORPHINE 2 MG/ML 1ML VIAL (J2270) IV PRN ×5 (02:21→21:28)
[2019-05-28] MEDS: ANEXSIA, NORCO 7.5MG/325MG TABLET(HYDROCODONE/APAP) PO PRN ×4 (04:45→20:00)
[2019-05-28] MEDS: LEVOTHYROXINE 75MCG TABLET (0.075MG) PO SCH (05:11)
[2019-05-28 05:24] VITALS: BP 110/58
[2019-05-28] MEDS ORDERED: **NOTE PATIENT COMMENT** MISC XX SCH (08:30)
[2019-05-28] MEDS: GABAPENTIN 300 MG CAP PO SCH ×2 (08:35→21:27)
[2019-05-28] MEDS: CALCIUM/VITAMIN D 500 MG TAB PO SCH (08:35)
[2019-05-28] MEDS: MAGNESIUM CHLORIDE 64 MG TABCR (SLO MAG) PO SCH ×2 (08:35→21:27)
[2019-05-28] MEDS: FUROSEMIDE 40 MG TAB PO SCH (08:36)
[2019-05-28] MEDS: OMEPRAZOLE 20 MG CAP PO SCH ×2 (08:36→21:27)
[2019-05-28] MEDS: ENOXAPARIN 40 MG/0.4 ML SYRINGE (J1650) SC SCH (08:37)
[2019-05-28 09:57] LABS: PTH INTACT 40.8 PG/ML (18.5-88.0); TOTAL 25(OH) VITAMIN D 31.3 NG/ML (30.0-100.0); VITAMIN B12 LEVEL 392 PG/ML (247-911)
--- NOTE | 2019-05-28 10:24 | CR ---
DATE OF CONSULTATION: 05/27/2019 CHIEF COMPLAINT: Right leg pain. HISTORY OF PRESENT ILLNESS: 73-year-old diabetic woman with peripheral neuropathy and likely osteoporosis/osteomalacia, who stood up, had pain in her leg, does not recall any additional specific injury, could not walk and was brought to the ER. She had imaging studies done which reflected a diaphyseal fibula fracture. I reviewed those x-rays. I do not appreciate any cortical erosions or lytic lesion, however I cannot rule out a pathologic entity. She has trouble ambulating and she was admitted for pain control and progressive mobilization as well as evaluation for other pathologic entity. MEDICAL HISTORY: Includes: Peripheral neuropathy. Hypertension. Renal disease. Hypothyroidism. Chronic obstructive pulmonary disease (COPD). Reflux. Arthritis. Dyslipidemia. Hypothyroidism. PAST SURGICAL HISTORY: Includes: Cystectomy. Cholecystectomy. Carpal tunnel release. Knee replacement on the right. Open reduction of left foot. SOCIAL HISTORY: Continues to smoke. FAMILY HISTORY: Includes high blood pressure and coronary artery disease as well as cervical cancer, otherwise noncontributory. ALLERGIES: Reviewed in the record. MEDICATIONS AT HOME: Reviewed in the record. REVIEW OF SYSTEMS: Negative except for right leg pain in 12 areas. CLINICAL EXAM: Alert, cooperative. Mood and affect appropriate. She speaks in complete sentences, not short of breath. No abdominal distention. Right lower extremity grossly no deformity. No effusion at the knee. Pain at the midportion the leg lateral aspect. No edema at the foot or ankle. Nontender at the foot and ankle. IMAGING: Fracture diaphysis right fibula, nondisplaced. IMPRESSION: Right fibula diaphyseal fracture, atraumatic in a 73-year-old female. RECOMMENDATIONS: While this fracture is likely an osteoporotic insufficiency fracture as the source of pathology, other pathologic considerations should be evaluated by the medical team such as multiple myeloma osteomalacia. Extensive labs have been arranged. From a surgical perspective, this would not be a surgical lesion. We would recommend mobilization with physiotherapy for protected weightbearing as tolerated on this extremity. This was explained also to the patient. For further details please refer to the medical record.
--- NOTE | 2019-05-28 11:56 | IPN ---
DATE: 05/28/2019 Nai is seen on 5 [address]. She was admitted with fibular fracture. She had a CT of the right lower extremity done yesterday, which showed a large proximal tibia lytic lesion with breaks in the anterior and posterior cortices, soft tissue components extending anteriorly and posteriorly through the breaks in the cortex, the lateral aspect of the right proximal tibial metaphysis. Lesion extends inferiorly to involve the intramedullary cavity of at least the proximal third of the tibial diaphysis. I also noted a comminuted mildly displaced right distal fibular fracture. She has no fever, chills or night sweats. No unexplained weight loss. PHYSICAL EXAM: Vital Signs: Stable. Lungs: Clear. Heart: Regular rate and rhythm. Abdomen: Soft, nontender. Right leg is tender to palpate distally. LABS: Today are all pending. IMPRESSION: 1. Right fibular fracture. She is declining orthopedic intervention for this. 2. Lytic lesions suspicious for myeloma versus metastatic lesion, unlikely osteoporotic with the extension. She has an SPEP ordered. Immunotyping is pending. I will order free kappa lambda light chains. I have also ordered a bone survey. 3. Diabetes. Blood sugars are well controlled. Not currently on fingersticks or any coverage. 4. Hypothyroidism. dose of levothyroxine. 5. Constipation. She would like some Ex-Lax ordered which she takes every other day at home.
[2019-05-28 12:52] LABS: ALBUMIN % 51.4 % (55.8-66.1); ALPHA-1-GLOBULIN % 6.7 % (2.9-4.9); ALPHA-2-GLOBULINS % 16.4 % (7.1-11.8)
[2019-05-28 12:53] LABS: ALBUMIN 3.19 GM/DL (3.29-5.55); ALPHA-1-GLOBULINS 0.42 GM/DL (0.17-0.41); ALPHA-2-GLOBULINS 1.02 GM/DL (0.42-0.99); BETA-1-GLOBULINS 0.39 GM/DL (0.28-0.60); BETA-1-GLOBULINS % 6.3 % (4.7-7.2); BETA-2-GLOBULINS 0.36 GM/DL (0.19-0.55); BETA-2-GLOBULINS % 5.8 % (3.2-6.5); GAMMA GLOBULIN % 13.4 % (11.1-18.8); GAMMA GLOBULINS 0.83 GM/DL (0.65-1.58)
[2019-05-28 14:00] VITALS: BP 129/62
[2019-05-28] MEDS ORDERED: EX LAX PO PRN (15:00)
[2019-05-28 20:00] VITALS: BP 119/57
[2019-05-28] MEDS: ASPIRIN 81 MG ENTERIC TAB PO SCH (21:27)
[2019-05-29] MEDS: ANEXSIA, NORCO 7.5MG/325MG TABLET(HYDROCODONE/APAP) PO PRN ×5 (00:20→21:10)
[2019-05-29] MEDS: MORPHINE 2 MG/ML 1ML VIAL (J2270) IV PRN ×5 (03:54→22:11)
[2019-05-29] MEDS: LEVOTHYROXINE 75MCG TABLET (0.075MG) PO SCH (05:19)
[2019-05-29 05:47] VITALS: BP 132/56
[2019-05-29 05:53] VITALS: BP 121/63
[2019-05-29] MEDS: GABAPENTIN 300 MG CAP PO SCH ×2 (09:45→21:09)
[2019-05-29] MEDS: FUROSEMIDE 40 MG TAB PO SCH (09:45)
[2019-05-29] MEDS: MAGNESIUM CHLORIDE 64 MG TABCR (SLO MAG) PO SCH ×2 (09:45→21:10)
[2019-05-29] MEDS: OMEPRAZOLE 20 MG CAP PO SCH ×2 (09:45→21:09)
[2019-05-29] MEDS: CALCIUM/VITAMIN D 500 MG TAB PO SCH (09:45)
[2019-05-29] MEDS: ENOXAPARIN 40 MG/0.4 ML SYRINGE (J1650) SC SCH (09:45)
--- NOTE | 2019-05-29 10:42 | IPN ---
DATE: 05/29/2019 Nai is seen on 5 [address]. She declined getting her bone survey done yesterday. So far, her workup for myeloma has been unremarkable. Her SPEP is normal, and there is no spike on her immunofixation. She also has a normal PTH, normal vitamin D level. She is having a lot of back pain, which is chronic. She has chronic pain syndrome and is on chronic opiates as an outpatient. I, frankly, have never seen her in the office when she was not in some element of pain, mostly in her left low back. PHYSICAL EXAM: Afebrile, vital signs stable. General appearance: Alert, conversant, no distress. Lungs: Clear. Heart: Regular rate and rhythm. Abdomen: Soft, nontender. No peripheral edema. Tender to palpate the right leg, distal to the knee that is over the fracture of the fibula. IMPRESSION: 1. Fibular fracture. Activity per orthopedics. 2. Proximal tibial lesion. I had a long discussion with Dr. Stuart Wells from radiology and I appreciate his reviewing the CT scan. We had considered getting a CT-guided biopsy of this lesion, but after careful consideration, he feels that this lesion is not lytic, cystic, or metastatic. He thinks it is postoperative related to fixative used in her knee replacement, does not feel it needs to be biopsied. In the face of unremarkable workup for myeloma and his expert opinion of this, I have cancelled the CT-guided biopsy. 3. Chronic pain syndrome. I have adjusted her pain medicines. 4. Hypothyroidism. Stable on current dose of levothyroxine. 5. Osteoporosis. She has significant osteoporosis. This is primarily related to inactivity-she spends most of her day sitting. She also was on pioglitazone, associated with osteoporosis. We can address this as an outpatient.
[2019-05-29 14:00] VITALS: BP 115/69
[2019-05-29] MEDS: ASPIRIN 81 MG ENTERIC TAB PO SCH (21:09)
[2019-05-29 22:00] VITALS: BP 130/60
[2019-05-30] MEDS: ANEXSIA, NORCO 7.5MG/325MG TABLET(HYDROCODONE/APAP) PO PRN ×3 (01:32→11:36)
[2019-05-30] MEDS: MORPHINE 2 MG/ML 1ML VIAL (J2270) IV PRN ×2 (03:04→08:08)
[2019-05-30] MEDS: LEVOTHYROXINE 75MCG TABLET (0.075MG) PO SCH (05:41)
[2019-05-30 05:47] LABS: FREE KAPPA LIGHT CHAINS SERUM 37.9 mg/L (3.3-19.4); FREE LAMBDA LIGHT CHAINS SERUM 35.1 mg/L (5.7-26.3); KAPPA/LAMBDA RATIO SERUM 1.08 (0.26-1.65); TISSUE TRANSGLUTAMINASE IgA <2 U/mL (0-3)
[2019-05-30 06:00] VITALS: BP 134/65
[2019-05-30 06:26] LABS: HEMATOCRIT 38.6 % (36.0-47.0); HEMOGLOBIN 11.7 g/dl (12.0-15.5); MEAN CORPUSCULAR HGB CONC 30.3 g/dl (32.0-36.5); MEAN CORPUSCULAR VOLUME 102.1 fl (80.0-96.0); PLATELET COUNT, AUTOMATED 218 10^3/uL (150-450); RED BLOOD COUNT 3.78 10^6/uL (4.00-5.40)
[2019-05-30 06:44] LABS: BLOOD UREA NITROGEN 15 MG/DL (7-18); CALCIUM LEVEL 8.6 MG/DL (8.8-10.2); CARBON DIOXIDE LEVEL 28 MEQ/L (21-32); CHLORIDE LEVEL 108 MEQ/L (98-107); CREATININE FOR GFR 0.97 MG/DL (0.55-1.30); GLOMERULAR FILTRATION RATE > 60.0 (>39); GLUCOSE, FASTING 155 MG/DL (70-100); POTASSIUM SERUM 3.4 MEQ/L (3.5-5.1); SODIUM LEVEL 142 MEQ/L (136-145)
[2019-05-30] MEDS: ENOXAPARIN 40 MG/0.4 ML SYRINGE (J1650) SC SCH (08:07)
[2019-05-30] MEDS: OMEPRAZOLE 20 MG CAP PO SCH (08:07)
[2019-05-30] MEDS: GABAPENTIN 300 MG CAP PO SCH (08:07)
[2019-05-30] MEDS: FUROSEMIDE 40 MG TAB PO SCH (08:07)
[2019-05-30] MEDS: CALCIUM/VITAMIN D 500 MG TAB PO SCH (08:07)
[2019-05-30] MEDS: MAGNESIUM CHLORIDE 64 MG TABCR (SLO MAG) PO SCH (08:10)
[2019-05-30] MEDS ORDERED: ASPERCREME WITH LIDOCAINE TOP PRN (09:00)
--- NOTE | 2019-05-30 10:28 | DSES ---
DATE OF ADMISSION: 05/26/2019 DATE OF DISCHARGE: PRINCIPAL DIAGNOSIS: Comminuted nondisplaced fracture distal right fibula. SECONDARY DIAGNOSES: Morbid obesity. Chronic opiate use. Hypothyroidism. Type 2 diabetes. Osteoporosis. HISTORY: Nai Campos turned on her right foot and fell fracturing her right distal fibula. Details in history and physical from admission. HOSPITAL COURSE: Patient was admitted to a medical bed, seen by orthopedics. They recommended protected weight bearing as tolerated. Patient looked to be significantly osteoporotic on imaging. Had a CT of the right leg done that initially suggested lytic lesions. It was reviewed by Dr. Stuart Wells, who did not feel there was evidence of bony destructive lesion. 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 No soft tissue mass was seen. [place] that there were reactive marrow changes associated with long-standing arthroplasty did not a biopsy. She did have a myeloma workup that was normal with normal SPEP and free kappa light chains. Her PTH intact molecule is normal. Her vitamin D level is normal. She did take pioglitazone for her diabetes, which can cause some osteoporosis. She is also essentially immobile, spends most of her day in a chair or a wheelchair, which is probably the proximate cause of this. PHYSICAL EXAM: 134/65, pulse of 80, respiratory 18, 96% oxygen saturation. Lungs: Clear. Heart: Regular rhythm. Abdomen: Soft, nontender. Right fibula tender to palpate. Right knee, nontender to palpate. LABS: Today's sodium 142, potassium 3.4, BUN 15, creatinine 0.9, glucose 155. White count 7, hemoglobin 11.7, platelets 218. DISPOSITION: She is seeing physical therapy now. If she is cleared for discharge, she will go home. She spends most of her day in a wheelchair, which she already has at home. Her home is wheelchair accessible. She will be discharged home. Followup in our office in 1-2 weeks. Activity per orthopedics. Followup appointment at [facility] as well. Consistent carbohydrate, no-added salt diet recommended with 2000 mL per day fluid restriction. Her medicines on discharge will continue to be: - aspirin 81 mg daily - calcium with vitamin D - Lasix 40 mg daily - gabapentin 600 mg three times a day - hydrocodone/acetaminophen 7.5/325 two tablets every 4 hours, which she has been on for over a decade - levothyroxine 75 mcg daily - Claritin 10 mg daily - SlowMag daily - multivitamin daily - nystatin as needed - omeprazole 20 mg twice a day We discontinued her pioglitazone 15 mg daily. She is not on any medication for her diabetes. Her last hemoglobin A1c was excellent at 5.5%, and her fasting blood sugars in the hospital have generally been between 100 and 150, so we can decide on starting another agent for diabetes as an outpatient.
== END 2019-05-30 14:55 | disposition home health service (06) | DRG 543 ==
LOC: EDBD 17:39 → EDSEX 17:39 → M ED 17:39 → M ED INP 20:50 → ENRESERV 23:35 → M MS5PR 05-27 00:22 → ENRESERV 05-27 00:35
PROVIDERS: ADMIT Internal Medicine; ATTEND Family Medicine
DX: M80.061A Age-related osteoporosis with current pathological fracture, right lower leg, initial encounter for fracture (principal); I13.0 Hypertensive heart and chronic kidney disease with heart failure and stage 1 through stage 4 chronic kidney disease, or unspecified chronic kidney disease; N18.3 Chronic kidney disease, stage 3 (moderate); E03.9 Hypothyroidism, unspecified; E11.40 Type 2 diabetes mellitus with diabetic neuropathy, unspecified; F11.90 Opioid use, unspecified, uncomplicated; Z79.82 Long term (current) use of aspirin; Z79.899 Other long term (current) drug therapy; J44.9 Chronic obstructive pulmonary disease, unspecified; K21.9 Gastro-esophageal reflux disease without esophagitis; E78.5 Hyperlipidemia, unspecified; R26.89 Other abnormalities of gait and mobility; M19.90 Unspecified osteoarthritis, unspecified site; Z91.041 Radiographic dye allergy status; Z88.8 Allergy status to other drugs, medicaments and biological substances; I50.9 Heart failure, unspecified; F17.200 Nicotine dependence, unspecified, uncomplicated; K59.00 Constipation, unspecified; Z96.651 Presence of right artificial knee joint; G89.29 Other chronic pain; E66.01 Morbid (severe) obesity due to excess calories

== ENCOUNTER 2019-07-24 15:43 | Outpatient (CLI) | payer MEDICARE, MEDICAID ==
[~2019-07-24] VITALS: Ht 152.4 cm; Wt 65.8 kg
[2019-07-24 15:40] VITALS: BP 117/69
[~2019-07-24 15:43] MED LIST changes: +GABA-843 PO; -OMEP-172 PO; +OMEP1CAP73 PO
[2019-07-24] MEDS ORDERED: ZOLEDRONIC ACID 5 MG in IV 1 EA IV ONE (15:45)
[2019-07-24 16:50] VITALS: BP 125/65
== END 2019-07-24 16:50 | disposition home or self-care (01) ==
LOC: M INFU 15:43
PROVIDERS: ATTEND Family Medicine
DX: M80.80XG Other osteoporosis with current pathological fracture, unspecified site, subsequent encounter for fracture with delayed healing (principal); Z88.1 Allergy status to other antibiotic agents; Z88.2 Allergy status to sulfonamides; Z91.041 Radiographic dye allergy status
CPT/HCPCS: 96365; J3489

== ENCOUNTER 2019-07-28 14:50 | Emergency (ER) | payer MEDICARE, MEDICAID ==
[~2019-07-28] VITALS: Ht 160 cm; Wt 63.6 kg
[2019-07-28 14:51] VITALS: BP 194/86
== END 2019-07-28 16:53 | disposition home or self-care (01) ==
LOC: M ED 14:50
DX: S46.301A Unspecified injury of muscle, fascia and tendon of triceps, right arm, initial encounter (principal); X50.1XXA Overexertion from prolonged static or awkward postures, initial encounter; Y92.092 Bedroom in other non-institutional residence as the place of occurrence of the external cause; I10 Essential (primary) hypertension; F17.210 Nicotine dependence, cigarettes, uncomplicated; Z91.041 Radiographic dye allergy status; Z88.8 Allergy status to other drugs, medicaments and biological substances; Z91.048 Other nonmedicinal substance allergy status; Z79.899 Other long term (current) drug therapy; Z79.82 Long term (current) use of aspirin

== ENCOUNTER → 2019-09-25 | Outpatient (CLI) | payer MEDICARE, MEDICAID ==
--- NOTE | 2019-09-26 04:10 | REP ---
Clinical: Right shoulder pain. Technique: Three views of the right shoulder. Findings: Generalized osteopenia noted. Spurring and cortical irregularity with periarticular calcification at the acromioclavicular joint is appreciated. There is subtle blunting and fraying along the calcified glenoid rim primarily involving the inferior margin. Subacromial space is within normal limits. No acute fracture or dislocation. There is a large mass involving the apical right upper lobe which represents a relatively new finding as compared to most recent chest x-ray dated 12/11/2015. Impression: 1. Large right apical lung mass requires immediate attention including contrast enhanced chest CT for further investigation. 2. Osteopenia and age-related arthritic degenerative changes. Electronically Signed by Lacho Romero MD 09/26/2019 04:01 A
== END ==
LOC: M ADAMS 11:36
PROVIDERS: ATTEND Family Medicine
DX: R91.8 Other nonspecific abnormal finding of lung field (principal); M85.811 Other specified disorders of bone density and structure, right shoulder; M25.511 Pain in right shoulder; N18.3 Chronic kidney disease, stage 3 (moderate); I11.9 Hypertensive heart disease without heart failure; E11.40 Type 2 diabetes mellitus with diabetic neuropathy, unspecified; E03.9 Hypothyroidism, unspecified; E78.5 Hyperlipidemia, unspecified
CPT/HCPCS: 73030; 80053; 80061; 83036; 84439; 84443; 85027; G0463

== ENCOUNTER → 2019-09-25 | Outpatient (REF) | payer MEDICARE, MEDICAID ==
[2019-09-25 15:48] LABS: HEMATOCRIT 39.3 % (36.0-47.0); HEMOGLOBIN 12.1 g/dl (12.0-15.5); MEAN CORPUSCULAR HEMOGLOBIN 28.7 pg (27.0-33.0); MEAN CORPUSCULAR HGB CONC 30.8 g/dl (32.0-36.5); MEAN CORPUSCULAR VOLUME 93.1 fl (80.0-96.0); PLATELET COUNT, AUTOMATED 375 10^3/uL (150-450); RED BLOOD COUNT 4.22 10^6/uL (4.00-5.40); WHITE BLOOD COUNT 12.8 10^3/uL (4.0-10.0)
[2019-09-25 16:05] LABS: ALBUMIN 2.9 GM/DL (3.2-5.2); ALT/SGPT 13 U/L (12-78); BILIRUBIN,TOTAL 0.3 MG/DL (0.2-1.0); BLOOD UREA NITROGEN 15 MG/DL (7-18); CALCIUM LEVEL 8.9 MG/DL (8.8-10.2); CARBON DIOXIDE LEVEL 27 MEQ/L (21-32); CHLORIDE LEVEL 105 MEQ/L (98-107); CHOLESTEROL LEVEL 107 MG/DL (<200); CHOLESTEROL RISK RATIO 2.488 (<5); CREATININE FOR GFR 0.71 MG/DL (0.55-1.30); FREE T4 1.21 NG/DL (0.76-1.46); GLOMERULAR FILTRATION RATE > 60.0 (>39); GLUCOSE, FASTING 97 MG/DL (70-100); HDL CHOLESTEROL 43 MG/DL (>40); LDL CHOLESTEROL 38 MG/DL (<100); NON-HDL-C 64 MG/DL; POTASSIUM SERUM 4.3 MEQ/L (3.5-5.1); SODIUM LEVEL 137 MEQ/L (136-145); THYROID STIMULATING HORMONE 0.542 uIU/ML (0.358-3.740); TRIGLYCERIDES LEVEL 131 MG/DL (<150)
[2019-09-25 16:13] LABS: HEMOGLOBIN A1c 6.5 %
== END ==
LOC: M SFHCADAM 11:27
PROVIDERS: ATTEND Family Medicine
DX: N18.3 Chronic kidney disease, stage 3 (moderate) (principal); I11.9 Hypertensive heart disease without heart failure; E11.40 Type 2 diabetes mellitus with diabetic neuropathy, unspecified; E03.9 Hypothyroidism, unspecified; E78.5 Hyperlipidemia, unspecified

== ENCOUNTER → 2019-09-26 | Outpatient (CLI) | payer MEDICARE, MEDICAID ==
--- NOTE | 2019-09-27 03:09 | REP ---
Clinical: Right lung mass. Technique: PA and lateral. Findings: 8 cm right upper lobe mass identified. The mediastinum and cardiac silhouette are normal and without obvious adenopathy. No consolidation. No effusion. No pneumothorax. Skeletal structures appear intact. Impression: 8 cm right upper lobe lung mass. Chest CT with contrast is recommended for further investigation. Electronically Signed by Lacho Romreo MD 09/27/2019 03:01 A
== END ==
LOC: M ADAMS 14:42
PROVIDERS: ATTEND Family Medicine
DX: R91.8 Other nonspecific abnormal finding of lung field (principal)

== ENCOUNTER → 2019-10-04 | Outpatient (REF) | payer MEDICARE, MEDICAID ==
[2019-10-04 18:13] LABS: BLOOD UREA NITROGEN 14 MG/DL (7-18); CREATININE FOR GFR 0.68 MG/DL (0.55-1.30); GLOMERULAR FILTRATION RATE > 60.0 (>39)
== END ==
LOC: M LABDRWAD 17:21
PROVIDERS: ATTEND Internal Medicine Pulmonary Disease
DX: R91.8 Other nonspecific abnormal finding of lung field (principal)

== ENCOUNTER → 2019-10-23 | Outpatient (CLI) | payer MEDICARE, MEDICAID | LOC: M LABSMTC 11:36 | PROVIDERS: ATTEND Anesthesiology | DX: Z01.818 Encounter for other preprocedural examination (principal); Z11.59 Encounter for screening for other viral diseases | CPT/HCPCS: C9803; U0002 ==

== ENCOUNTER 2019-10-24 07:03 | Outpatient (CLI) | payer MEDICARE, MEDICAID ==
[2019-10-24] MEDS ORDERED: LIDOCAINE 2% 100MG/5ML SDV (FOR ANES.) ONE (07:04)
[2019-10-24] MEDS ORDERED: propofoL 200 MG/20 ML VIAL ONE (07:04)
[2019-10-24] MEDS ORDERED: ISOVUE-370 76% 100ML VIAL As Ordered ONE (07:17)
[2019-10-24 08:53] VITALS: BP 159/85
--- NOTE | 2019-11-06 15:08 | REP ---
Clinical: Follow up abnormal lung findings. Technique: Axial noncontrast images from the thoracic inlet to the upper abdomen with coronal and sagittal re-formations. Comparison: Chest x-ray dated 09/26/2019. Findings: A 6.5 cm right apical lung mass is appreciated which appears to extend into the soft tissue surrounding the anterior portion of the right first rib (images 15 - 38). No no significant associated mediastinal or hilar adenopathy is appreciated. The lung norman demonstrate no diffusely increased reticular nodular interstitial changes which are relatively nonspecific and no further area of mass or consolidation is appreciated. No effusion. No pneumothorax. The mediastinum demonstrates atherosclerotic changes to the thoracic aorta and coronary arteries without aortic aneurysm or dissection. No cardiomegaly or pericardial effusion. Surrounding musculoskeletal structures of the thorax demonstrate age-related osteopenia and degenerative changes without obvious focal abnormality. Limited upper abdomen demonstrates normal bilateral adrenal glands. Kidneys demonstrate bilateral nephroliths, left-sided hypodensities suggesting cysts and asymmetric atrophy of the left kidney. The stomach is incompletely evaluated or distended but gastric wall thickening cannot be excluded. Impression: 1. 6.5 cm right apical lung mass with subtle early extension into the adjacent anterior soft tissue surrounding the anterior right first rib. No significant adenopathy or obvious satellite lesions are identified. 2. Diffuse generalized reticulonodular interstitial changes likely age-related. No effusion. 3. Limited upper abdomen demonstrates bilateral nephrolithiasis, atrophic appearance to the left kidney with small cysts, and possible gastric wall thickening. Electronically Signed by Lacho Romero MD 11/06/2019 02:59 P
== END 2019-10-24 09:15 | disposition home or self-care (01) ==
LOC: M SDC 07:03
PROVIDERS: ATTEND Internal Medicine Pulmonary Disease
DX: J98.4 Other disorders of lung (principal)
CPT/HCPCS: 71260; Q9967

== ENCOUNTER → 2019-11-07 | Outpatient (CLI) | payer MEDICARE, MEDICAID ==
[2019-11-07 17:31] LABS: PLATELET COUNT, AUTOMATED 358 10^3/uL (150-450)
[2019-11-07 17:43] LABS: INR 1.1; PROTHROMBIN TIME 13.9 SECONDS (11.8-14.0)
[2019-11-07 17:44] LABS: PARTIAL THROMBOPLASTIN TIME 32.9 SECONDS (25.0-38.4)
== END ==
LOC: M PLALAB 15:14
PROVIDERS: ATTEND Internal Medicine Pulmonary Disease
DX: Z01.812 Encounter for preprocedural laboratory examination (principal); Z79.899 Other long term (current) drug therapy

== ENCOUNTER 2019-11-18 17:20 | Emergency (ER) | payer MEDICARE, MEDICAID ==
[~2019-11-18 17:20] MED LIST changes: -CALCTAB89 PO; -EUTH75TA; -OXYC1TAB23 PO; -VITA1CAP4 PO
[2019-11-18] MEDS ORDERED: VITA1CAP4 PO (18:23)
[2019-11-18] MEDS ORDERED: EUTH75TA (18:23)
[2019-11-18] MEDS ORDERED: CALCTAB89 PO (18:23)
[2019-11-18] MEDS ORDERED: ONDANSETRON 4MG/2ML VIAL IV ONE (18:30)
[2019-11-18] MEDS ORDERED: MORPHINE 4 MG/ML 1ML VIAL/SYRINGE (J2270) IV PRN (18:30)
[2019-11-18 18:52] LABS: BASO % 0.2 % (0.0-1.0); EOS # 0.1 10^3/uL (0.0-0.5); EOS % 0.3 % (0.0-3.0); HEMATOCRIT 36.5 % (36.0-47.0); HEMOGLOBIN 11.3 g/dl (12.0-15.5); LYMPH # 2.5 10^3/uL (1.5-5.0); LYMPH % 14.2 % (24.0-44.0); MEAN CORPUSCULAR HEMOGLOBIN 27.7 pg (27.0-33.0); MEAN CORPUSCULAR VOLUME 89.5 fl (80.0-96.0); MONO # 1.1 10^3/uL (0.0-0.8); MONO % 6.3 % (0.0-5.0); NEUTROPHILS # 13.9 10^3/uL (1.5-8.5); NEUTROPHILS % 78.3 % (36.0-66.0); PLATELET COUNT, AUTOMATED 416 10^3/uL (150-450); RED BLOOD COUNT 4.08 10^6/uL (4.00-5.40); WHITE BLOOD COUNT 17.8 10^3/uL (4.0-10.0)
[2019-11-18] MEDS ORDERED: KCL 10MEQ/100ML SWI (KRUN) 10 MEQ in IV 1 EA IV ONE (19:00)
[2019-11-18] MEDS ORDERED: OXYC1TAB23 PO (19:42)
[2019-11-18] MEDS ORDERED: OXYCODONE/APAP 5MG/325MG(BULK FOR ED) 1 TABLET PO ONE (19:45)
[2019-11-18] MEDS ORDERED: POTASSIUM CHLORIDE 10 MEQ SR TABLET PO ONE (20:00)
[2019-11-18 20:14] VITALS: BP 117/73
--- NOTE | 2019-11-19 03:46 | REP ---
SINGLE-VIEW CHEST, 11/18/2019: INDICATION: Lung mass. Dyspnea. COMPARISON: CT chest dated 10/24/2019. FINDINGS: Patient is rotated, and there is a poor inspiratory effort/result. No pleural effusion is present. There is no evidence of pneumothorax. Large right lung mass is re-demonstrated. IMPRESSION: No significant change compared to approximately 3 weeks earlier. Large right lung mass re-demonstrated. No significant effusion or pneumothorax. MTDD
== END 2019-11-18 20:19 | disposition left against medical advice (07) ==
LOC: M ED 17:20
DX: G89.4 Chronic pain syndrome (principal); E87.6 Hypokalemia; R91.8 Other nonspecific abnormal finding of lung field; E11.9 Type 2 diabetes mellitus without complications; I12.9 Hypertensive chronic kidney disease with stage 1 through stage 4 chronic kidney disease, or unspecified chronic kidney disease; N18.3 Chronic kidney disease, stage 3 (moderate); J44.9 Chronic obstructive pulmonary disease, unspecified; E07.9 Disorder of thyroid, unspecified; K21.9 Gastro-esophageal reflux disease without esophagitis; Z79.899 Other long term (current) drug therapy; Z79.82 Long term (current) use of aspirin; Z91.041 Radiographic dye allergy status; Z88.8 Allergy status to other drugs, medicaments and biological substances; Z88.2 Allergy status to sulfonamides; F17.200 Nicotine dependence, unspecified, uncomplicated; Z11.59 Encounter for screening for other viral diseases
CPT/HCPCS: 36415; 71045; 80047; 85025; 96374; 96375; 99284; C9803; J2270; J2405; U0003

== ENCOUNTER → 2019-11-18 | Outpatient (CLI) | payer MEDICARE, MEDICAID ==
[~2019-11-18] MED LIST changes: +CALCTAB89 PO; +EUTH75TA; +OXYC1TAB23 PO; +VITA1CAP4 PO
== END ==
LOC: M LABSMTC 12:16
PROVIDERS: ATTEND Anesthesiology
DX: Z01.818 Encounter for other preprocedural examination (principal); Z11.59 Encounter for screening for other viral diseases

== ENCOUNTER → 2019-11-20 | Outpatient (CLI) | payer MEDICARE, MEDICAID ==
[~2019-11-20] MED LIST changes: +CALCTAB89 PO; +EUTH75TA; +OXYC1TAB23 PO; +VITA1CAP4 PO
== END ==
LOC: M CARPUL 09:58
PROVIDERS: ATTEND Internal Medicine Pulmonary Disease
DX: R91.8 Other nonspecific abnormal finding of lung field (principal)

== ENCOUNTER 2019-11-21 06:04 | Day surgery (SDC) | payer MEDICARE, MEDICAID ==
[~2019-11-21] VITALS: Ht 154.9 cm; Wt 61.2 kg
[2019-11-21 06:44] VITALS: BP 135/74
[2019-11-21] MEDS ORDERED: LR 1,000 ML IV ONE (07:00)
[2019-11-21] MEDS ORDERED: propofoL 200 MG/20 ML VIAL As Ordered ONE (07:03)
[2019-11-21] MEDS ORDERED: LIDOCAINE 2% 100MG/5ML SDV (FOR ANES.) As Ordered ONE (07:03)
[2019-11-21] MEDS ORDERED: MIDAZOLAM INJ 2MG/2ML VIAL (J2250 PER 1MG) As Ordered ONE (07:03)
[2019-11-21] MEDS ORDERED: ONDANSETRON 4MG/2ML VIAL As Ordered ONE (07:03)
[2019-11-21] MEDS ORDERED: METOCLOPRAMIDE INJ 10MG/2ML VIAL (J2765 PER 1) As Ordered ONE (07:03)
[2019-11-21] MEDS ORDERED: fentaNYL 100 MCG/2 ML INJECTION (J3010) As Ordered ONE (07:04)
[2019-11-21] MEDS ORDERED: EPINEPHrine INJ 1 MG/ML 1ML AMP As Ordered ONE (07:07)
[2019-11-21] MEDS ORDERED: LIDOCAINE 4% TOPICAL SOLN 50 ML BTL As Ordered ONE (07:07)
[2019-11-21] MEDS ORDERED: LIDOCAINE 1% SDV 30ML VIAL As Ordered ONE (07:07)
[2019-11-21] MEDS ORDERED: THROMBIN SOLN 20,000 UNITS KIT As Ordered ONE (07:07)
[2019-11-21] MEDS ORDERED: LIDOCAINE VISCOUS 2% SOLN 15ML UDC As Ordered ONE (07:08)
[2019-11-21] MEDS ORDERED: EPINEPHrine 1MG/10ML SYRINGE 1.5IN As Ordered ONE (07:10)
[2019-11-21] MEDS ORDERED: CETACAINE SPRAY 5GM As Ordered ONE (07:12)
--- NOTE | 2019-11-21 09:06 | IPN ---
DATE: 11/21/2019 Nai presented today for bronchoscopy despite numerous phone conversations on Monday and Monday, just two days prior and yesterday, regarding potential hospice versus going through with bronchoscopy. The patient presented to the operating room (OR) today stating that she just could not do this. She states she was in too much pain. She did not want to pursue any further biopsies. I had a discussion with her regarding hospice, she wishes to enroll in hospice. After a 20-minute conversation with her and inviting her son in for the conversation, they have agreed on hospice. The patient also wants to be DO NOT RESUSCITATE (DNR) and stay at home as much as possible unless pain is uncontrolled. I will therefore set up hospice for her. On physical exam, temperature is 97.0, pulse is 76, respiratory rate is 20, blood pressure is 135/74 with MAP of 94, and 90% on room air. The patient is sitting forward, she is unable to lie back. She has significant right shoulder discomfort. She asked me not to touch the right side because of her discomfort. General: Awake, but very distraught. Able to follow along with conversation. No dyspnea with conversation. HEENT: Sclerae clear and anicteric. Pupils equal, react to light. Mucous membranes moist. Neck: Significant cervical lordosis. Lymphs: No cervical, supraclavicular or axillary adenopathy. Cardiac: Distant. S1,S2. Without audible murmur, rub or gallop. No elevated jugular venous pulse (JVP). No peripheral edema. Pulmonary: Decreased breath sounds the entire right field. Some air entry in the right base. Left side clear to auscultation without rales, rhonchi or wheezes. No accessory muscle use. Abdomen: Obese, soft, nontender, nondistended. No hepatosplenomegaly. No masses or hernia. Extremities: No cyanosis, clubbing or edema. Musculoskeletal: Severe thoracic kyphosis. Some muscle wasting. No evidence of unilateral weakness. Continues to have right shoulder pain and limited motion of the right shoulder. No other new diagnostic testing. IMPRESSION: 74-year-old female with large right upper lobe mass with rib invasion, likely primary lung cancer, opting for hospice rather than biopsy, which I think is very reasonable as her therapeutic options are extremely limited. She is not a candidate for surgery. She would be an unlikely candidate for chemotherapy as she does not ambulate and is not even able to lay down. For the same reason, I do not believe she would be able to tolerate radiation as she is unable to be in the supine position. She sleeps sitting up apparently. Therefore, her pain is such that I have urgently requested hospice. The patient is DNR. I will continue to be her hospice physician as long as she requires.
== END 2019-11-21 07:39 | disposition home or self-care (01) ==
LOC: M SDC 06:04
PROVIDERS: ATTEND Internal Medicine Pulmonary Disease
DX: R91.8 Other nonspecific abnormal finding of lung field (principal); Z53.20 Procedure and treatment not carried out because of patient's decision for unspecified reasons
CPT/HCPCS: J2405; J2765